=== PATIENT | female | born 1970 | race Caucasian/White ===

== ENCOUNTER → 2023-03-31 10:08 | Outpatient (BNVA) | payer MEDICAID, SELFPAY | PROVIDERS: PCP Nurse Practitioner; Visit Provider Podiatrist Foot & Ankle Surgery | DX: M76.821 Posterior tibial tendinitis, right leg (principal) | CPT/HCPCS: 73630 ==

== ENCOUNTER → 2023-06-01 10:18 | Outpatient (BNVA) | payer MEDICAID, SELFPAY | PROVIDERS: PCP Nurse Practitioner; Referring Provider Nurse Practitioner; Visit Provider Internal Medicine Rheumatology | DX: Z79.899 Other long term (current) drug therapy (principal); M19.90 Unspecified osteoarthritis, unspecified site; R53.83 Other fatigue; M45.6 Ankylosing spondylitis lumbar region; R76.8 Other specified abnormal immunological findings in serum | CPT/HCPCS: 36415; 82306; 84439; 84443; 85651; 86160; 86162; 86200; 86235; 86255; 86376; 86431; 86800; 86812 ==

== ENCOUNTER → 2023-11-03 14:05 | Outpatient (BNVA) | payer OTHER, MEDICAID, SELFPAY | PROVIDERS: PCP Nurse Practitioner; Visit Provider Internal Medicine Rheumatology | DX: Z79.899 Other long term (current) drug therapy (principal); R76.8 Other specified abnormal immunological findings in serum; M25.50 Pain in unspecified joint; M21.612 Bunion of left foot; R53.83 Other fatigue | CPT/HCPCS: 80076; 82565; 85025; 86140; 99214 ==

== ENCOUNTER → 2023-12-22 08:04 | Outpatient (BNVA) | payer OTHER, MEDICAID, SELFPAY | PROVIDERS: PCP Nurse Practitioner; Visit Provider Podiatrist Foot & Ankle Surgery | DX: M79.672 Pain in left foot (principal); M20.12 Hallux valgus (acquired), left foot; M20.11 Hallux valgus (acquired), right foot; G57.91 Unspecified mononeuropathy of right lower limb; M76.821 Posterior tibial tendinitis, right leg; M21.42 Flat foot [pes planus] (acquired), left foot | CPT/HCPCS: 73630 ==

== ENCOUNTER 2024-02-01 10:27 | Outpatient (CLI) | payer OTHER, MEDICAID, SELFPAY ==
--- NOTE | 2024-02-01 10:34 | MM_ITS ---
WS: [id number] BILATERAL SCREENING DIGITAL TOMOSYNTHESIS MAMMOGRAM WITH CAD HISTORY: SCREENING COMPARISON: None available. Bilateral CC and MLO views with tomosynthesis and synthetic mammography submitted. Computer aided det ection analyzed. Breast composition: There are scattered areas of fibroglandular density. No suspicious masses, microc alcifications or architectural distortion. Benign intramammary lymph nodes. Benign calcifications. MM/[place] [id number] IMPRESSION: BI-RADS: 2-Benign FOLLOW UP: 1 Year Follow-up
== END 2024-02-01 10:28 | disposition home or self-care (01) ==
LOC: RAD 10:27
PROVIDERS: PCP Nurse Practitioner; Visit Provider Nurse Practitioner Occupational Health
DX: Z12.31 Encounter for screening mammogram for malignant neoplasm of breast (principal)
CPT/HCPCS: 77063; 77067

== ENCOUNTER 2024-02-14 07:26 | Day surgery (SDC) | payer OTHER, MEDICAID, SELFPAY ==
--- NOTE | 2024-02-14 07:26 | W.PM.OPSFHP ---
Same Day Surgery H&P Indication for Procedure/HPI DATE OF PROCEDURE: February 14, 2024 CHIEF COMPLAINT/INDICATIONFOR SURGICAL PROCEDURE: need for screening colonoscopy PREOP DIAGNOSIS: need for screening colonoscopy PLANNED PROCEDURE: Operation Date: 02/14/24 08:35 Proposed Procedures p Colonoscopy(Not Applicable) - Steffen Inman MD Medications/Allergies* Home Medications Medication Instructions Recorded Confirmed Type albuterol sulfate 90 mcg/actuation 2 puff inhalation Q6H PRN 03/31/23 02/09/24 History aerosol inhaler Shortness Of Breath cholecalciferol (vitamin D3) 125 125 mcg PO DAILY 03/31/23 02/09/24 History mcg (5,000 unit) capsule ezetimibe 10 mg tablet 10 mg PO DAILY 03/31/23 02/09/24 History vitamin B complex 1 tab PO DAILY 03/31/23 02/09/24 History acetaminophen 500 mg capsule 1,000 mg PO BID PRN Pain 06/01/23 02/09/24 History clonidine HCl 0.1 mg tablet 0.2 mg PO .HS 11/03/23 02/09/24 History L.acidophilus,rhamnosus-B.breve-S.thermophilus 1 tab PO DAILY 02/09/24 02/09/24 History 3 billion cell chew tab baclofen 5 mg tablet 5 mg PO BID PRN Spasms 02/09/24 02/09/24 History biotin 10,000 mcg chewable tablet 10,000 mcg PO DAILY 02/09/24 02/09/24 History (Hair, Skin and Nails (biotin)) buspirone 15 mg tablet 15 mg PO TID 02/09/24 02/09/24 History calcium 600 mg capsule 600 mg PO DAILY 02/09/24 02/09/24 History doxepin 50 mg capsule 50 mg PO BEDTIME 02/09/24 02/09/24 History gabapentin 300 mg capsule 300 mg PO TID 02/09/24 02/09/24 History levocetirizine 5 mg tablet 5 mg PO DAILY 02/09/24 02/09/24 History melatonin 10 mg tablet 10 mg PO BEDTIME 02/09/24 02/09/24 History methylphenidate HCl 36 mg 36 mg PO DAILY 02/09/24 02/09/24 History tablet,extended release 24 hr ([employer]) pantoprazole 40 mg tablet,delayed 40 mg PO DAILY 02/09/24 02/09/24 History release zinc gluconate 50 mg tablet 50 mg PO DAILY 02/09/24 02/09/24 History Allergies/Adverse Reactions Allergy/AdvReac Type Severity Reaction Status Date / Time No Known Allergies Allergy Verified 12/22/23 08:06 Pertinent History/Comorbid Conditions* Medical History (Updated 12/26/23 @ 15:29 by Steffen Bourgeois DPM) Bunion of great toe of left foot Positive VOLODYMYR (antinuclear antibody) High risk medication use Polyarthralgia Hyperlipidemia Joint pain Fatigue Tendonitis Ovarian cyst Allergies Acute anxiety ADHD Breast cyst High cholesterol Heartburn Asthma Surgical History (Updated 06/01/23 @ 10:03 by Arnoldo Upton MD) H/O ovarian cystectomy Family History (Updated 06/01/23 @ 09:24 by Apoorva Melendez LPN) Diabetes CAD (coronary artery disease) Lung disease Cancer Hypertension Stroke Denies family history of Rheumatoid arthritis Lupus Hyperlipidemia Chronic kidney disease (CKD) Social History Smoking and tobacco/nicotine status: former use of tobacco/nicotine Alcohol intake: never Substance/Drug Use: unknown Pertinent Exam Findings alert, oriented x 3, clear to auscultation bilaterally and regular rate & rhythm Recommendations Surgery/Procedure today Coding Level of Care Code Acute Code for Chg Fwjose f
[2024-02-14 07:38] VITALS: BP 143/84; PULSE 102; RESP 18; TEMP 36.2; O2SAT 96; BMI 36.6
[2024-02-14] MEDS: sodium chloride 0.9% 1,000 ML 30 ML IV (07:43)
--- NOTE | 2024-02-14 07:52 | ANES.PREANE2 ---
Pre-Anesthetic Assessment Height/Weight: Height 1.65 m Weight 99.79 kg Temp Pulse Resp BP Pulse Ox O2 Del Method 97.2 F L 102 H 18 143/84 96 Room Air 02/14/24 07:38 02/14/24 07:38 02/14/24 07:38 02/14/24 07:38 02/14/24 07:38 02/14/24 07:38 Preop Diagnosis: need for screening colonoscopy Operation Date: 02/14/24 08:35 Proposed Procedures p Colonoscopy(Not Applicable) - Steffen Inman MD Last intake: Intake Last Liquid Date 02/13/24 Last Liquid Time 22:00 Last Solid Date 02/12/24 Last Solid Time 22:00 Social No tobacco Exam alert, oriented x 3, clear to auscultation bilaterally and regular rate & rhythm Airway Submandibular: within normal limits Cervical ROM: within normal limits Mallampati: Class II Dentition: false Pulmonary probable KRYS. Going for sleep study soon CV/HEM Hypertension None reported Hepatic None reported Metabolic None reported Anesthetic Plan ASA status: 3 Anesthesia: MAC Medications/Allergies Home Medications Medication Instructions Recorded Confirmed Last Taken Type albuterol sulfate 90 mcg/actuation 2 puff inhalation Q6H PRN 03/31/23 02/14/24 02/11/24 History aerosol inhaler Shortness Of Breath cholecalciferol (vitamin D3) 125 125 mcg PO DAILY 03/31/23 02/14/24 02/13/24 History mcg (5,000 unit) capsule ezetimibe 10 mg tablet 10 mg PO DAILY 03/31/23 02/14/24 02/13/24 History vitamin B complex 1 tab PO DAILY 03/31/23 02/14/24 02/12/24 History acetaminophen 500 mg capsule 1,000 mg PO BID PRN Pain 06/01/23 02/14/24 02/10/24 History clonidine HCl 0.1 mg tablet 0.2 mg PO .HS 11/03/23 02/14/24 02/13/24 History hydroxychloroquine 200 mg tablet See Rx Instructions .Route 11/03/23 02/14/24 02/13/24 Rx .COMPLEX #60 tabs prednisone 20 mg tablet See Rx Instructions PO .COMPLEX 01/10/24 02/14/24 02/10/24 Rx PRN joint pain flare #30 tabs L.acidophilus,rhamnosus-B.breve-S.thermophilus 1 tab PO DAILY 02/09/24 02/14/24 02/13/24 History 3 billion cell chew tab baclofen 5 mg tablet 5 mg PO BID PRN Spasms 02/09/24 02/14/24 02/13/24 History biotin 10,000 mcg chewable tablet 10,000 mcg PO DAILY 02/09/24 02/14/24 02/13/24 History (Hair, Skin and Nails (biotin)) buspirone 15 mg tablet 15 mg PO TID 02/09/24 02/14/24 02/13/24 History calcium 600 mg capsule 600 mg PO DAILY 02/09/24 02/14/24 02/13/24 History doxepin 50 mg capsule 50 mg PO BEDTIME 02/09/24 02/14/24 02/13/24 History gabapentin 300 mg capsule 300 mg PO TID 02/09/24 02/14/24 02/13/24 History levocetirizine 5 mg tablet 5 mg PO DAILY 02/09/24 02/14/24 02/13/24 History melatonin 10 mg tablet 10 mg PO BEDTIME 02/09/24 02/14/24 02/13/24 History methylphenidate HCl 36 mg 36 mg PO DAILY 02/09/24 02/14/24 02/13/24 History tablet,extended release 24 hr ([employer]) pantoprazole 40 mg tablet,delayed 40 mg PO DAILY 02/09/24 02/14/24 02/13/24 History release zinc gluconate 50 mg tablet 50 mg PO DAILY 02/09/24 02/14/24 02/13/24 History Allergies Allergy/AdvReac Type Severity Reaction Status Date / Time No Known Allergies Allergy Verified 12/22/23 08:06 Current Medications Generic Name Dose Route Start Last Admin Trade Name Freq PRN Reason Stop Dose Admin Sodium Chloride 1,000 mls @ 30 mls/hr 02/14/24 07:30 02/14/24 07:43 Sodium Chloride 0.9% IV 02/15/24 07:29 30 mls/hr .Q24H RACHEL Administration PFSH Anesthesia Medical History Bunion of great toe of left foot Positive VOLODYMYR (antinuclear antibody) High risk medication use Polyarthralgia Hyperlipidemia Joint pain Fatigue Tendonitis Ovarian cyst Allergies Acute anxiety ADHD Breast cyst High cholesterol Heartburn Asthma Surgical History H/O ovarian cystectomy Family History Other CAD (coronary artery disease) Cancer Diabetes Hypertension Lung disease Stroke Denies family history of Rheumatoid arthritis Lupus Hyperlipidemia Chronic kidney disease (CKD) Social History Smoking and tobacco/nicotine status: former use of tobacco/nicotine Alcohol intake: never Substance/Drug Use: unknown Data Anesthesia Cardiac Studies: No Data to Display
[2024-02-14 08:44] VITALS: BP 105/74; PULSE 78; RESP 16; TEMP 36.1; O2SAT 97
[2024-02-14 09:01] VITALS: BP 146/100; PULSE 75; RESP 16; O2SAT 97
--- NOTE | 2024-02-14 13:37 | P.ANESPOST_ITS ---
Inpatient post-anesthesia follow up: Vital signs: Temperature 97.0 F Pulse Rate 75 Respiratory Rate 16 Blood Pressure 146/100 Pulse Oximetry 97 Oxygen Delivery Me thod Room Air Oxygen Flow Rate Fraction of Inspir ed Oxygen Hydration adequate: Yes Nausea and vomiting: No Pain level: con trolled Mental status: Baseline Additional Comments: no apparent anesthetic complications noted
== END 2024-02-14 09:16 | disposition home or self-care (01) ==
PROVIDERS: PCP Nurse Practitioner; Visit Provider Surgery
PROC: 0DJD8ZZ Inspection of Lower Intestinal Tract, Via Natural or Artificial Opening Endoscopic (ICD-10-PCS; CPT 45378; principal; 2024-02-14 08:35)
DX: Z12.11 Encounter for screening for malignant neoplasm of colon (principal); E78.00 Pure hypercholesterolemia, unspecified; J45.909 Unspecified asthma, uncomplicated; Z79.899 Other long term (current) drug therapy
CPT/HCPCS: 45378; J2704; J7030

== ENCOUNTER → 2024-02-23 15:08 | Outpatient (BNVA) | payer OTHER, MEDICAID, SELFPAY | PROVIDERS: PCP Nurse Practitioner; Visit Provider Internal Medicine Rheumatology | DX: Z79.899 Other long term (current) drug therapy (principal); M25.50 Pain in unspecified joint | CPT/HCPCS: 80076; 82565; 85025; 86140 ==

== ENCOUNTER 2024-05-23 09:51 | Outpatient (CLI) | payer MEDICAID, SELFPAY ==
--- NOTE | 2024-05-23 09:54 | CT_ITS ---
WS: [id number] LDCT LUNG CANCER SCREENING HISTORY: PERSONAL HX OF NICOTINE DEPENDENCE TECHNIQUE: Axial imaging performed from the apices to 1 cm below the costophrenic angles. Coronal and sagittal reformats are submitted with axial MIP series. All CT scans at [facility] use at least one of these dose optimization techniques: automated exposure control; mA and/or kV adjustment per patient size (includes targeted exams where dose is matched to clinical indication); or iterativ e reconstruction. DLP: 104.50 mGy.cm DIvol: Mean CTDIvol: 2.50 (mGy) COMPARISON: None available. Diagnostic quality: Satisfactory Lungs: Mild pulmonary hyperexpansion. No mass or pulmonary nodule. No groundglass attenuation or endo bronchial lesions. Heart: Normal size heart with no pericardial effusion.. Other findings: Normal size aorta and pulmonary artery. No adenopathy. Hilar regions are difficult to evaluate without IV contrast. Visualized adrenal glands are negative. Cortical 6 mm hyperdensity sup erior lateral pole LEFT kidney is probably a small hemorrhagic cyst. CT/CT lung screening [id number] IMPRESSION: LUNG-RADS: 1-Negative FOLLOW UP: 12 Month: Continue annual screening with LDCT OTHER FINDINGS (S MODIFIER): None.
== END 2024-05-23 09:52 | disposition home or self-care (01) ==
LOC: RAD 09:51
PROVIDERS: PCP Nurse Practitioner; Visit Provider Nurse Practitioner Occupational Health
DX: Z87.891 Personal history of nicotine dependence (principal)
CPT/HCPCS: 71271

== ENCOUNTER 2024-08-15 10:10 | Outpatient (CLI) | payer MEDICAID, SELFPAY ==
[2024-08-15 10:21] VITALS: PULSE 82; RESP 18; O2SAT 98
[2024-08-15] MEDS: albuterol 2.5 mg/3 mL Neb INHALATION (10:21)
[2024-08-15 10:26] VITALS: PULSE 79
== END 2024-08-15 10:11 | disposition home or self-care (01) ==
LOC: RT 10:11
PROVIDERS: PCP Nurse Practitioner; Visit Provider Nurse Practitioner Occupational Health
DX: R06.02 Shortness of breath (principal)
CPT/HCPCS: 94060; J7613

== ENCOUNTER → 2024-10-15 15:34 | Outpatient (BNVA) | payer MEDICAID, SELFPAY | PROVIDERS: PCP Nurse Practitioner; Visit Provider Internal Medicine Rheumatology | DX: Z79.899 Other long term (current) drug therapy (principal); M25.50 Pain in unspecified joint; R76.8 Other specified abnormal immunological findings in serum | CPT/HCPCS: 36415; 80076; 82565; 85025; 85651; 86140 ==

== ENCOUNTER 2024-10-31 11:03 | Outpatient (CLI) | payer MEDICAID, SELFPAY ==
[2024-10-31 11:24] VITALS: PULSE 77; RESP 18; O2SAT 100
[2024-10-31] MEDS: albuterol 2.5 mg/3 mL Neb INHALATION (11:24)
[2024-10-31 11:29] VITALS: PULSE 82
== END 2024-10-31 11:04 | disposition home or self-care (01) ==
LOC: RT 11:03
PROVIDERS: PCP Nurse Practitioner; Visit Provider Internal Medicine Pulmonary Disease
DX: Z87.891 Personal history of nicotine dependence (principal); J45.20 Mild intermittent asthma, uncomplicated
CPT/HCPCS: 94060; 94618; 94726; 94729; J7613

== ENCOUNTER 2024-12-24 15:48 | Outpatient (CLI) | payer MEDICAID, SELFPAY | END 2024-12-24 15:49 | disposition home or self-care (01) | LOC: SLEEP 15:49 | PROVIDERS: PCP Nurse Practitioner; Visit Provider Nurse Practitioner Family | DX: G47.10 Hypersomnia, unspecified (principal); R06.83 Snoring | CPT/HCPCS: G0399 ==

== ENCOUNTER → 2025-04-03 14:07 | Outpatient (BNVA) | payer MEDICAID, SELFPAY | PROVIDERS: PCP Nurse Practitioner Occupational Health; Visit Provider Internal Medicine Rheumatology | DX: Z79.899 Other long term (current) drug therapy (principal) | CPT/HCPCS: 36415; 80076; 82306; 82565; 85025; 85651; 86140 ==

== ENCOUNTER 2025-07-12 13:46 | Outpatient (CLI) | payer MEDICAID, SELFPAY ==
--- NOTE | 2025-07-12 13:51 | US_ITS ---
WS: [id number] RENAL ULTRASOUND HISTORY: ABNORMAL RESULTS OF KIDNEY FUNCTION STUDIES COMPARISON: None available. TECHNIQUE: 2-D and color Doppler imaging of the kidney submitted. Right kidney: 9.9 cm x 4.8 cm x 3.3 cm. Cortex: 1.2 cm Normal echogenicity with no hydronephrosis or mass. Left kidney: 10.0 cm x 4.9 cm x 4.4 cm. Cortex: 1.5 cm Normal echogenicity with no hydronephrosis or mass. Aorta: Normal. Urinary Bladder: Minimally distended. US/US renal BI* [id number] IMPRESSION: Normal renal ultrasound.
== END 2025-07-12 13:47 | disposition home or self-care (01) ==
LOC: RAD 13:48
PROVIDERS: PCP Nurse Practitioner Occupational Health; Visit Provider Nurse Practitioner Occupational Health
DX: R94.4 Abnormal results of kidney function studies (principal)
CPT/HCPCS: 76770

== ENCOUNTER → 2025-08-26 12:23 | Outpatient (BNVA) | payer MEDICAID, SELFPAY | PROVIDERS: PCP Nurse Practitioner Occupational Health; Referring Provider Nurse Practitioner Occupational Health; Visit Provider Internal Medicine | DX: R07.9 Chest pain, unspecified (principal) | CPT/HCPCS: 93005 ==

== ENCOUNTER 2025-09-11 09:47 | Outpatient (CLI) | payer MEDICAID, SELFPAY ==
--- NOTE | 2025-09-11 10:00 | USCV_ITS ---
Kristine Medina Age: 54 Gender: F : 1970 Exam Date: 09/11/2025 10:12 Ordering Phys: Hal Lenz M.D ([email or web address]) Technologist: Exam Location: [facility] – [place] Indication: cp sob BP: 117 / 70 HR: 84 Rhythm: Sinus Technical Quality: Adequate MEASUREMENTS (Male / Female) Normal Values 2D ECHO LV Diastolic Diameter PLAX 4.3 cm 4.2 - 5.9 / 3.9 - 5.3 cm IVS Diastolic Thickness 1.1 cm 0.6 - 1.0 / 0.6 - 0.9 cm IVS Systolic Thickness 1.4 cm LVPW Diastolic Thickness 1.4 cm 0.6 - 1.0 / 0.6 - 0.9 cm LVPW Systolic Thickness 1.4 cm LVOT Diameter 2.0 cm LV Ejection Fraction 2D Teich 63.4 % LV Ejection Fraction MOD 4C 66.5 % LV Ejection Fraction MOD 2C 70.3 % LV Ejection Fraction 2C AL 71.3 % LA Diameter 3.3 cm RA Systolic Volume 4C AL 42.1 ml RA Systolic Volume 4C MOD 41.4 ml Aorta at Sinotubular Diameter 2.4 cm IVC Diameter 2.2 cm M-MODE LA Ao Ratio MM 1.6 AV Cusp Separation MM 2.1 cm DOPPLER AV Peak Velocity 137.0 cm/s LVOT Peak Velocity 104.0 cm/s AV Area Cont Eq vti 2.9 cm squared AV Area Cont Eq pk 2.4 cm squared MV Peak Velocity 102.0 cm/s MV Area PHT 4.9 cm squared Mitral E to A Ratio 1.0 TV Peak Velocity 248.5 cm/s TR Peak Velocity 281.0 cm/s TR Peak Gradient 31.6 mmHg TV Peak E Velocity 80.0 cm/s PV Peak Velocity 120.0 cm/s FINDINGS Left Ventricle Normal left ventricular size, systolic function and wall thickness, with no regional wall motion abnormalities. Left ventricular ejection fraction is estimated at 60 %. Normal diastolic function. Right Ventricle Normal right ventricular size and systolic function. Right Atrium Normal right atrial size. Left Atrium Normal left atrial size. IA Septum Normal appearance of the interatrial septum. Mitral Valve Mildly thickened mitral valve. No mitral valve stenosis. Trace mitral valve regurgitation. Aortic Valve Mild aortic valve calcification. No aortic valve stenosis. Trace aortic valve regurgitation. Tricuspid Valve Normal tricuspid valve structure. No tricuspid valve stenosis or regurgitation. Normal pulmonary pressure. Pulmonic Valve Normal pulmonic valve structure. No pulmonic valve stenosis or regurgitation. Pericardium No pericardial effusion. Aorta Normal diameter of the aortic root and ascending thoracic aorta. IVC Normal IVC diameter. CONCLUSIONS Normal left ventricular size, systolic function and wall thickness, with no regional wall motion abnormalities. Left ventricular ejection fraction is estimated at 60 %. Normal diastolic function. No significant valvular abnormalities. There is no pericardial effusion. Right atrial pressure is around 5 mm of mercury. Chuy Chavez MD (Electronically Signed) Final Date: 20 September 2025 10:47 S
== END 2025-09-11 09:48 | disposition home or self-care (01) ==
LOC: RAD 09:48
PROVIDERS: PCP Nurse Practitioner Occupational Health; Visit Provider Internal Medicine
DX: R07.9 Chest pain, unspecified (principal); R06.02 Shortness of breath; I05.9 Rheumatic mitral valve disease, unspecified; I35.8 Other nonrheumatic aortic valve disorders
CPT/HCPCS: 93306